=== PATIENT | male | born 1960 | race African-American/Black ===

== ENCOUNTER 2019-03-02 19:03 | Emergency (ER) | payer MEDICAID ==
[~2019-03-02] VITALS: Ht 185.4 cm; Wt 124.7 kg
[2019-03-02 19:17] VITALS: BP 126/77
[2019-03-02 19:18] VITALS: BP 126/77
--- NOTE | 2019-03-02 19:19 | NUR ---
TO LOBBY A/W BED AMBULATORY
--- NOTE | 2019-03-02 19:39 | NUR ---
PT AMBULATED TO ER BED 09
--- NOTE | 2019-03-02 19:39 | NUR ---
PT TAKEN TO BED 9
--- NOTE | 2019-03-02 19:55 | NUR ---
58 Y MALE BIB SELF C/O RT MIDDLE FINGER PAIN FOR WOUND CHECK. WOUND APPEARS TO BE WHITE AND NECROTIC AT END OF FINGER NAIL. +RADIAL RT PULSE. +ROM. PT STATES HE HAS BEEN PUTTING HYDROGEN PEROXIDE AT THE SITE. VSS AT THIS TIME. PT [id number]. BED IS DOWN, LOCKED, BED RAIL X 1, ERMD TO SEE PT.
--- NOTE | 2019-03-02 19:58 | NUR ---
DR PRADHAN AT BEDSIDE
[2019-03-02] MEDS ORDERED: LIDOCAINE 1% 500 MG/50 ML VIAL INJ SCH (20:05)
[2019-03-02] MEDS ORDERED: LIDOCAINE MPF 1% - 5 mL VIAL 10 ML ONE (20:16)
--- NOTE | 2019-03-02 20:18 | NUR ---
BACITRACIN APPLIED TO INJURED SITE. JOHN EMT AT BEDSIDE FOR DRESSING APPLICATION
[2019-03-02] MEDS ORDERED: BACITRACIN OINT 500 UNITS/GM PKT TP ONE ×2 (20:20→20:28)
--- NOTE | 2019-03-02 20:28 | NUR ---
BACITRACIN WAS PLACED ON PTS RIGHT MIDDLE FINGER A NON ADHESIVE GAUZE PAD WAS PLACED TO KEEP WOULD CLOSED AND THEN WRAPPED WITH A ROLL GAUZE
--- NOTE | 2019-03-02 21:00 | NUR ---
Written and verbal after care instructions given and explained BY DR PRADHAN. Patient alert AND ORIENTED. PATIENT Ambulatory with steady gait. ID band removed. Rx of KEFLEX, NAPROSYN given.
== END 2019-03-02 21:00 | disposition home or self-care (01) ==
LOC: MED 19:03
DX: S61.304A Unspecified open wound of right ring finger with damage to nail, initial encounter (principal); L03.011 Cellulitis of right finger; X58.XXXA Exposure to other specified factors, initial encounter; Y93.89 Activity, other specified; Y92.89 Other specified places as the place of occurrence of the external cause; Y99.8 Other external cause status
CPT/HCPCS: 11730; 99283; J2001